=== PATIENT | female | born 1980 | race Asian ===

== ENCOUNTER 2017-11-15 18:24 | Inpatient (IN) | payer OTHER ==
--- NOTE | 2017-11-15 18:46 | HP ---
General Information - General Information Maternal Age: 36 Grav: 4 Para: 2 SAB: 1 IEA: 0 Estimated Due Date: 12/03/17 Determined By: LMP Gestational Age in Weeks and Days: 30 Weeks and 2 Days Maternal Blood Type and Rh: O Positive - Results this Serology/RPR Result: Non-Reactive Rubella Result: Immune HBsAg Result: Negative HIV Result: Negative GBS Culture Result: Negative Past Medical History Delivery History: Hx Uncomplicated Vaginal Delivery, See Records Pertinent Past Medical History: Non-Contributory Pertinent Past Surgical History: None Pertinent Family History: Non-Contributory - Antepartal Records Antepartal Records: Reviewed, Uncomplicated Review of Systems Constitutional: Comfortable Genitourinary: Leaking Fluid, No Bleeding Movement: Normal Exam Allergies/Adverse Reactions: Allergies No Known Allergies Allergy (Verified 09/26/17 00:59) - Measurements Pre- Weight: 118 lb - Exam Abdomen: No Upper Quadrant Pain Extremities: No Edema Heart: Normal Rhythm/Heart Sounds HEENT: No Significant Findings Lungs: Clear Bilaterally Targeted Exam Findings Cervical Exam: 5cm Effacement: 80% Station: -1 Presenting Part: Vertex Membrane Status: Leaking - clear Amniotic Fluid Evaluation: Gross Rupture EFM Findings - External Monitor Findings Baseline Heart Rate: 135 External Monitor Findings: Variability Moderate Contractions: Regular, Moderate, 45-90 Seconds Assessment/Plan - Reason for Visit Reason for Visit: labor / rom - Plan Plan: Active Labor
[2017-11-15] MEDS ORDERED: Acetaminophen TAB* 325 MG PO PRN (21:47)
[2017-11-15] MEDS ORDERED: Dibucaine 1% 28.35 GM TUBE PR PRN (21:47)
[2017-11-15] MEDS ORDERED: Witch Hazel PAD* JAR TOPICAL PRN (21:47)
[2017-11-15] MEDS ORDERED: Glycerin ADULT SUPP PR PRN (21:47)
[2017-11-15] MEDS: Ibuprofen TAB* 600 MG PO PRN (22:38)
[2017-11-16 08:19] LABS: ABS Basophils 0.1 10^3/ul (0-0.2); ABS Eosinophils 0.1 10^3/ul (0-0.6); ABS Lymphocytes 1.7 10^3/ul (1.0-4.8); ABS Monocytes 0.8 10^3/ul (0-0.8); ABS Neutrophils 7.9 10^3/ul (1.5-7.7); ABS Nucleated RBC 0 10^3/ul; Eosinophil % 1.2 % (0-6); Hematocrit 31 % (35-47); Hemoglobin 10.9 g/dl (12.0-16.0); Mean Corpuscular HGB Conc 35 g/dl (31-36); Mean Corpuscular Hemoglobin 32 pg (27-31); Mean Corpuscular Volume 92 fL (80-97); Mean Platelet Volume 10.5 um3 (7.4-10.4); Nucleated Red Blood Cells % 0; Platelet Count 96 10^3/ul (150-450); Red Blood Count 3.38 10^6/ul (4.0-5.4); Red Cell Distribution Width 13 % (10.5-15); White Blood Count 10.7 10^3/ul (3.5-10.8)
[2017-11-16] MEDS ORDERED: Ferrous Gluconate TAB* 324 MG TAB PO SCH (09:00)
[2017-11-16] MEDS: Docusate CAP* 100 MG PO SCH ×3 (09:24→20:55)
[2017-11-16] MEDS: Simethicone TAB* 80 MG TAB.CHEW PO SCH ×2 (09:25→18:14)
[2017-11-16] MEDS: Ibuprofen TAB* 600 MG PO PRN (18:13)
[2017-11-17 08:09] VITALS: BP 97/73
[2017-11-17] MEDS: Docusate CAP* 100 MG PO SCH (08:57)
== END 2017-11-17 11:00 | disposition home or self-care (01) | DRG 775 ==
LOC: MCHOBOUT 18:24 → MCHOB 18:44
PROVIDERS: ADMIT Obstetrics & Gynecology; ATTEND Obstetrics & Gynecology
PROC: 10E0XZZ Delivery of Products of Conception, External Approach (ICD-10-PCS; principal; 2017-11-15)
PROC: 4A1HX4Z Monitoring of Products of Conception, Cardiac Electrical Activity, External Approach (ICD-10-PCS; 2017-11-15)
PROC: 0HQ9XZZ Repair Perineum Skin, External Approach (ICD-10-PCS; 2017-11-15)
DX: O70.0 First degree perineal laceration during delivery (principal); Z3A.37 37 weeks gestation of pregnancy; Z37.0 Single live birth
CPT/HCPCS: 36415; 85025; 85060; A9270-GY